=== PATIENT | female | born 1975 | race Caucasian/White ===

== ENCOUNTER 2017-11-08 17:20 | Emergency (ER) | payer SELFPAY ==
--- NOTE | 2017-11-08 18:13 | ER Document Report ---
ED Medical Screen (RME) - General TRAVEL OUTSIDE OF THE [place] 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 This happened several times which affected her walking. Pain extended from the left knee up into the left hip. Whenever she walks, she hears a "pop". Today, patient had an episode where her left hand "froze up" in an open position which lasted for about 2 minutes before it resolved on its own. Patient does not have any history of problems other than she was seen for a knee problem and she was a teenager. (GENO CIFUENTES) - Related Data Allergies/Adverse Reactions: No Known Allergies Allergy (Verified 11/08/17 17:21) Past Medical History - Social History Chew tobacco use (# tins/day): No Frequency of alcohol use: None Drug Abuse: None Renal/ Medical History: Denies: Hx Peritoneal Dialysis - Immunizations Hx Diphtheria, Pertussis, Tetanus Vaccination: Yes <GENO CIFUENTES - Last Filed: 11/08/17 18:12> - Vital signs Vitals: Temp Pulse Resp BP Pulse Ox 97.9 F 95 14 127/48 H 100 11/08/17 17:26 11/08/17 17:26 11/08/17 17:26 11/08/17 17:26 11/08/17 17:26 Course - Laboratory Result Diagrams: 11/08/17 18:25 11/08/17 18:25 <EFRAIN ORTIZ - Last Filed: 11/08/17 20:16> - Vital Signs Vital signs: Temp Pulse Resp BP Pulse Ox 97.9 F 95 14 127/48 H 100 11/08/17 17:26 11/08/17 17:26 11/08/17 17:26 11/08/17 17:26 11/08/17 17:26 - Laboratory Laboratory results interpreted by me: 11/08/17 18:25 WBC 10.9 H Doctor's Discharge <ESAU,GENO - Last Filed: 11/08/17 18:12> <EFRAIN ORTIZ - Last Filed: 11/08/17 20:16> - Discharge Clinical Impression: Hand pain, left Knee pain Qualifiers: Chronicity: acute Laterality: bilateral Qualified Code(s): M25.561 - Pain in right knee; M25.562 - Pain in left knee; M25.562 - Pain in left knee Condition: Stable Disposition: HOME, SELF-CARE Additional Instructions: The blood work shows no concerning abnormality. Your x-ray of the left knee is normal. Your right knee examination suggests a meniscus injury. Elevate, apply ice to the knee (i.e. 15 minutes up up to 3-4 times a day), take the anti-inflammatory as prescribed. Follow up with the primary care referral for additional management (including a possible autoimmune panel based on varied joint pain and family history). Return to the ED for any concerning symptoms - redness/swelling, fever, etc. Prescriptions: Naproxen 250 mg PO BID #20 tablet
[2017-11-08 18:43] LABS: ABSOLUTE BASOPHILS # (AUTO) 0.1 10^3/uL (0.0-0.2); ABSOLUTE EOSINOPHILS # (AUTO) 0.4 10^3/uL (0.0-0.6); ABSOLUTE MONOCYTES (AUTO) 0.9 10^3/uL (0.1-1.4); ABSOLUTE NEUT (AUTO) 6.6 10^3/uL (1.7-8.2); BASOPHILS % (AUTO) 0.6 % (0-2); EOSINOPHILS % (AUTO) 3.3 % (0-6); HEMATOCRIT 41.2 % (36.0-47.0); HEMOGLOBIN 14.3 g/dL (12.0-15.5); HGB HCT DIFFERENCE 1.7; LYMPHOCYTES % (AUTO) 27.4 % (13-45); MEAN CORPUSCULAR HEMOGLOBIN 32.4 pg (27.0-33.4); MEAN CORPUSCULAR HGB CONC 34.7 g/dL (32.0-36.0); MEAN CORPUSCULAR VOLUME 93 fl (80-97); RED BLOOD COUNT 4.41 10^6/uL (3.72-5.28); RED CELL DISTRIBUTION WIDTH 13.5 % (11.5-14.0); SEGMENTED NEUTROPHILS % (AUTO) 60.7 % (42-78); WHITE BLOOD COUNT 10.9 10^3/uL (4.0-10.5)
[2017-11-08 18:59] LABS: ALANINE AMINOTRANSFERASE 27 U/L (9-52); ALBUMIN 4.2 g/dL (3.5-5.0); ALKALINE PHOSPHATASE 83 U/L (38-126); ANION GAP 12 (5-19); ASPARTATE AMINO TRANSFERASE 17 U/L (14-36); BILIRUBIN,DIRECT 0.2 mg/dL (0.0-0.4); BILIRUBIN,TOTAL 0.2 mg/dL (0.2-1.3); BLOOD UREA NITROGEN 7 mg/dL (7-20); CALCIUM 9.6 mg/dL (8.4-10.2); CARBON DIOXIDE 25 mmol/L (22-30); CHLORIDE 106 mmol/L (98-107); CREATININE RESULT 0.78 mg/dL (0.52-1.25); GLUCOSE 83 mg/dL (75-110); MAGNESIUM 2.1 mg/dL (1.6-2.3); POTASSIUM 4.1 mmol/L (3.6-5.0); TOTAL PROTEIN 6.7 g/dL (6.3-8.2)
--- NOTE | 2017-11-08 19:21 | RADIOLOGY REPORT (SQ) ---
EXAM DESCRIPTION: KNEE LEFT 3 VIEWS COMPLETED DATE/TIME: 11/08/2017 6:52 pm REASON FOR STUDY: Left knee locking up. COMPARISON: None. NUMBER OF VIEWS: Three views. TECHNIQUE: AP, lateral, and tunnel radiographic images acquired of the left knee. LIMITATIONS: None. FINDINGS: MINERALIZATION: Normal. BONES: No acute fracture or dislocation. No worrisome bone lesions. JOINT: No effusion. SOFT TISSUES: No soft tissue swelling. No radio-opaque foreign body. OTHER: No other significant finding. IMPRESSION: NEGATIVE STUDY OF THE LEFT KNEE. NO RADIOGRAPHIC EVIDENCE OF ACUTE INJURY. TECHNICAL DOCUMENTATION: JOB ID: [id number] [employer]- All Rights Reserved
[2017-11-08 20:24] VITALS: BP 112/48
--- NOTE | 2017-11-08 20:32 | ER Document Report ---
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 This happened several times which affected her walking. Pain extended from the left knee up into the left hip. Whenever she walks, she hears a "pop". Today, patient had an episode where her left hand "froze up" in an open position which lasted for about 2 minutes before it resolved on its own. Patient does not have any history of problems other than she was seen for a knee problem and she was a teenager. TRAVEL OUTSIDE OF THE [place] IN LAST 30 DAYS: No - Related Data Allergies/Adverse Reactions: No Known Allergies Allergy (Verified 11/08/17 17:21) Past Medical History - Social History Chew tobacco use (# tins/day): No Frequency of alcohol use: None Drug Abuse: None Renal/ Medical History: Denies: Hx Peritoneal Dialysis - Immunizations Hx Diphtheria, Pertussis, Tetanus Vaccination: Yes Physical Exam - Vital signs Vitals: Temp Pulse Resp BP Pulse Ox 97.9 F 95 14 127/48 H 100 11/08/17 17:26 11/08/17 17:26 11/08/17 17:26 11/08/17 17:26 11/08/17 17:26 Course - Vital Signs Vital signs: Temp Pulse Resp BP Pulse Ox 98.2 F 98 18 112/48 L 100 11/08/17 20:22 11/08/17 20:22 11/08/17 20:22 11/08/17 20:22 11/08/17 20:22 - Laboratory Result Diagrams: 11/08/17 18:25 11/08/17 18:25 Laboratory results interpreted by me: 11/08/17 18:25 WBC 10.9 H Doctor's Discharge - Discharge Clinical Impression: Hand pain, left Knee pain Qualifiers: Chronicity: acute Laterality: bilateral Qualified Code(s): M25.561 - Pain in right knee Condition: Stable Disposition: HOME, SELF-CARE Additional Instructions: The blood work shows no concerning abnormality. Your x-ray of the left knee is normal. Your right knee examination suggests a meniscus injury. Elevate, apply ice to the knee (i.e. 15 minutes up up to 3-4 times a day), take the anti-inflammatory as prescribed. Follow up with the primary care referral for additional management (including a possible autoimmune panel based on varied joint pain and family history). Return to the ED for any concerning symptoms - redness/swelling, fever, etc. Prescriptions: Naproxen 250 mg PO BID #20 tablet
== END 2017-11-08 20:28 | disposition home or self-care (01) ==
LOC: ER 17:20
DX: M79.642 Pain in left hand (principal); M25.562 Pain in left knee; M25.552 Pain in left hip; M79.1 Myalgia; X58.XXXA Exposure to other specified factors, initial encounter
CPT/HCPCS: 36415; 80053; 83735; 85025; 99283

== ENCOUNTER 2018-02-13 09:00 | Emergency (ER) | payer OTHER ==
--- NOTE | 2018-02-13 09:39 | ER Document Report ---
ED General - General Chief Complaint: Cold Symptoms Stated Complaint: COUGH Time Seen by Provider: 02/13/18 09:13 Mode of Arrival: Ambulatory Information source: Patient Notes: 42-year-old female presents to ED for cough, congestion, headache, body aches, diarrhea since Friday or Friday and fever since yesterday. Patient is alert and oriented steady on her feet walks with a even steady gait speaks with full sentences pupils equal and react to light. TRAVEL OUTSIDE OF THE [place] IN LAST 30 DAYS: No - HPI Onset: Last week Onset/Duration: Gradual, Persistent, Worse Quality of pain: Achy, Sharp Severity: Severe Pain Level: 5 Associated symptoms: Body/muscle aches, Nonproductive cough, Productive cough, Diarrhea, Fever, Rhinnorhea, Sinus pain/drainage Exacerbated by: Denies Relieved by: Denies Similar symptoms previously: Yes Recently seen / treated by doctor: No - Related Data Allergies/Adverse Reactions: No Known Allergies Allergy (Verified 02/13/18 09:05) Past Medical History - General Information source: Patient - Social History Smoking Status: Current Every Day Smoker Cigarette use (# per day): Yes - ppd Chew tobacco use (# tins/day): No Smoking Education Provided: Yes - 4 min Frequency of alcohol use: None Drug Abuse: None Occupation: [employer] Lives with: Family, Spouse/Significant other Family History: Arthritis, CAD, DM, Hyperlipidemia, Hypertension, Malignancy, Thyroid Disfunction Patient has suicidal ideation: No Patient has homicidal ideation: No - Past Medical History Cardiac Medical History: Reports: None Pulmonary Medical History: Reports: Hx Asthma, Hx Bronchitis EENT Medical History: Reports: None Neurological Medical History: Reports: None Endocrine Medical History: Reports: None Renal/ Medical History: Reports: None Malignancy Medical History: Reports: None GI Medical History: Reports: None Musculoskeltal Medical History: Reports None Skin Medical History: Reports None Psychiatric Medical History: Reports: None Traumatic Medical History: Reports: None Infectious Medical History: Reports: None Surgical Hx: Negative Past Surgical History: Reports: None - Immunizations Immunizations up to date: Yes Hx Diphtheria, Pertussis, Tetanus Vaccination: Yes Review of Systems - Review of Systems Constitutional: Chills, Fever, Recent illness EENT: Nose congestion, Nose discharge, Sinus pressure, Sinus discharge, Throat pain Cardiovascular: No symptoms reported Respiratory: Cough Gastrointestinal: No symptoms reported Genitourinary: No symptoms reported Female Genitourinary: No symptoms reported Musculoskeletal: No symptoms reported Skin: No symptoms reported Hematologic/Lymphatic: No symptoms reported Neurological/Psychological: Headaches -: Yes All other systems reviewed and negative Physical Exam - Vital signs Vitals: Temp Pulse Resp BP Pulse Ox 99.3 F 112 H 18 129/59 H 96 02/13/18 09:09 02/13/18 09:09 02/13/18 09:09 02/13/18 09:09 02/13/18 09:09 Interpretation: Normal - General General appearance: Appears well, Alert - HEENT Head: Normocephalic, Atraumatic Eyes: Normal Pupils: PERRL Ears: Normal Sinus: Normal Nasal: Purulent discharge Mouth/Lips: Normal Mucous membranes: Normal Pharynx: Erythema, Post nasal drainage. No: Exudate, Peritonsillar abscess, Retropharyngeal abscess, Tonsillar hypertrophy, Potential airway comprom. Neck: Normal - Respiratory Respiratory status: No respiratory distress Chest status: Nontender Breath sounds: Nonproductive cough. No: Productive cough, Rales, Rhonchi, Stridor, Wheezing Chest palpation: Normal - Cardiovascular Rhythm: Regular Heart sounds: Normal auscultation Murmur: No - Abdominal Inspection: Normal Distension: No distension Bowel sounds: Normal Tenderness: Nontender Organomegaly: No organomegaly - Back Back: Normal, Nontender - Extremities General upper extremity: Normal inspection, Nontender, Normal color, Normal ROM , Normal temperature General lower extremity: Normal inspection, Nontender, Normal color, Normal ROM , Normal temperature, Normal weight bearing. No: Veronica's sign - Neurological Neuro grossly intact: Yes Cognition: Normal Orientation: AAOx4 Vanessa Coma Scale Eye Opening: Spontaneous Vanessa Coma Scale Verbal: Oriented Vanessa Coma Scale Motor: Obeys Commands Vanessa Coma Scale Total: 15 Speech: Normal Motor strength normal: LUE, RUE, LLE, RLE Sensory: Normal - Psychological Associated symptoms: Normal affect, Normal mood - Skin Skin Temperature: Warm Skin Moisture: Dry Skin Color: Normal Course - Re-evaluation Re-evalutation: 02/13/18 21:37 No significant findings noted on chest x-ray. Patient was treated with Claritin 10 mg, Sudafed 30 mg, Mucinex 600 mg, for her cough cold congestion. Patient was discharged home with instructions for an upper respiratory infection. Patient verbalized understanding of instructions and need to follow- up with primary doctor. - Vital Signs Vital signs: Temp Pulse Resp BP Pulse Ox 100.4 F 94 16 117/59 L 96 02/13/18 10:55 02/13/18 10:55 02/13/18 10:55 02/13/18 10:55 02/13/18 10:55 - Laboratory Result Diagrams: 02/13/18 09:55 02/13/18 09:55 Laboratory results interpreted by me: 02/13/18 02/13/18 09:55 09:55 BUN 4 L Glucose 118 H Urine Urobilinogen 2.0 H Urine Ascorbic Acid 20 H - Diagnostic Test Radiology reviewed: Image reviewed, Reports reviewed Discharge - Discharge Clinical Impression: URI (upper respiratory infection) Qualifiers: URI type: unspecified URI Qualified Code(s): J06.9 - Acute upper respiratory infection, unspecified Condition: Stable Disposition: HOME, SELF-CARE Instructions: Family Physicians / Practices Additional Instructions: UPPER RESPIRATORY ILLNESS: You have a viral infection of the respiratory passages -- a "cold." This common infection causes nasal congestion, drainage, and often sore throat and cough. It is highly contagious. The disease usually lasts about 10 to 14 days. There is no "cure" for the viral infection -- it must run its course. If there is a complication, such as bacterial infection in the nose, sinuses, middle ear, or bronchial tubes, antibiotics may be required. The antibiotics won't affect the virus. Drink plenty of fluids. A humidifier may help. An expectorant medication or decongestant may make you more comfortable. Use acetaminophen or ibuprofen for fever or aches. See the doctor if fever persists over two days, if there is any significant worsening of your symptoms, or if you simply fail to improve as expected. You were treated with Claritin 10 mg, Sudafed 30 mg, Mucinex 600 mg, and ibuprofen 600 mg in the emergency room. These are kamy-exb-aehabyg medications that she can buy as well as Flonase that she can use 1 spray each nostril twice a day. Go according to the box directions. The Sudafed you will need to get across the pharmacy counter and sign for it the rest of them are over-the- counter. If you would like a prescription for the ibuprofen I come into the 600s or you can just get the [id number]-bic-sltqlzh ones and take 3 of them every 6-8 hours. DECONGESTANT MEDICATION: A decongestant medicine has been prescribed. Often this medicine is combined in the same tablet with an antihistamine or expectorant. This type of medicine is helpful in treating a bad cold or sinus condition, as well as in treatment of the nasal congestion of hay fever. It is not of much benefit for lung infections. Decongestant medicines are related to stimulants. They can cause an increase in blood pressure and heart rate. Persons with heart disease and high blood pressure should not take decongestants without discussing this with the physician. If you develop palpitations, chest pain, headache, or tremors, stop the medicine and consult your physician. COUGH-SUPPRESSANT & EXPECTORANT MEDICATION: You are to use a cough medication as needed for relief of symptoms. This medicine is a combination of an expectorant (to make the mucous thinner and more easily "coughed up") and a cough suppressant (to reduce the frequency of coughing). The cough-suppressant medicine is related to narcotics. You may experience mild nausea and sleepiness. Some patients who are very sensitive to narcotics may have stomach pain from this medicine. Taking the medicine with food reduces these side effects. Do not drive or work with machinery until you know how this medicine affects you. The expectorant should have no side effects. Iodine-containing expectorants (such as organidin) should not be taken by persons with active thyroid disease unless approved by your doctor. Call the doctor if you develop shortness of breath, hives, rash, itching, lightheadedness, or severe nausea and vomiting. INHALED BRONCHODILATORS: You have received a treatment of and/or prescription for an inhaled bronchodilator -- a medication which stimulates the airways in the lung to dilate. This improves the flow of air in asthma, bronchitis, and emphysema. These medicines have some similarity to adrenaline, and can cause similar side effects: shakiness, racing heart, and a sense of nervousness. These side effects decrease with time. Contact your doctor if these side effects are severe. Do not over-use the medicine. Too-frequent use of the inhaler may make it ineffective. Call your doctor if the inhaler is not controlling your symptoms at the prescribed doses. USE OF ACETAMINOPHEN (Tylenol): Acetaminophen may be taken for pain relief or fever control. It's much safer than aspirin, offering a wider range of "safe" dosages. It is safe during . Some brand names are Tylenol, Panadol, Datril, Anacin 3, Tempra, and Liquiprin. Acetaminophen can be repeated every four hours. The following are maximum recommended dosages: >89 pounds or adults 650 mg to 900 mg Acetaminophen can be repeated every four hours. Maximum dose not to exceed 4000 mg a day. SMOKING: If you smoke, you should stop smoking. The tar and chemicals in cigarette smoke are harmful. Smoking has been shown to cause: emphysema chronic bronchitis lung cancer mouth and throat cancer stomach and pancreas cancer premature aging defects In addition, smoking increases ear and lung infections in children of smokers. FOLLOW-UP CARE: If you have been referred to a physician for follow-up care, call the physician s office for an appointment as you were instructed or within the next two days. If you experience worsening or a significant change in your symptoms, notify the physician immediately or return to the Emergency Department at any time for re-evaluation. Forms: Elevated Blood Pressure, Smoking Cessation Education, Return to Work
--- NOTE | 2018-02-13 10:11 | RADIOLOGY REPORT (SQ) ---
EXAM DESCRIPTION: CHEST PA/LAT COMPLETED DATE/TIME: 02/13/2018 9:45 am REASON FOR STUDY: cough fever COMPARISON: None. EXAM PARAMETERS: NUMBER OF VIEWS: two views TECHNIQUE: Digital Frontal and Lateral radiographic views of the chest acquired. RADIATION DOSE: NA LIMITATIONS: none FINDINGS: LUNGS AND PLEURA: No opacities, masses or pneumothorax. No pleural effusion. MEDIASTINUM AND HILAR STRUCTURES: No masses or contour abnormalities. HEART AND VASCULAR STRUCTURES: Heart normal size. No evidence for failure. BONES: No acute findings. HARDWARE: None in the chest. OTHER: No other significant finding. IMPRESSION: NO SIGNIFICANT RADIOGRAPHIC FINDING IN THE CHEST. TECHNICAL DOCUMENTATION: JOB ID: [id number] [employer]- All Rights Reserved Reading location - IP/workstation name: [email or web address]
[2018-02-13 10:13] LABS: ABSOLUTE LYMPHOCYTES (AUTO) 1.1 10^3/uL (0.5-4.7); ABSOLUTE MONOCYTES (AUTO) 0.8 10^3/uL (0.1-1.4); ABSOLUTE NEUT (AUTO) 5.5 10^3/uL (1.7-8.2); BASOPHILS % (AUTO) 0.2 % (0-2); EOSINOPHILS % (AUTO) 0.2 % (0-6); HEMATOCRIT 41.8 % (36.0-47.0); HEMOGLOBIN 14.6 g/dL (12.0-15.5); LYMPHOCYTES % (AUTO) 15.2 % (13-45); MEAN CORPUSCULAR HEMOGLOBIN 32.4 pg (27.0-33.4); MEAN CORPUSCULAR HGB CONC 34.9 g/dL (32.0-36.0); MEAN CORPUSCULAR VOLUME 93 fl (80-97); PLATELET COUNT 260 10^3/uL (150-450); RED BLOOD COUNT 4.51 10^6/uL (3.72-5.28); RED CELL DISTRIBUTION WIDTH 13.6 % (11.5-14.0); SEGMENTED NEUTROPHILS % (AUTO) 73.4 % (42-78); TOTAL CELLS COUNTED % (AUTO) 100 %; WHITE BLOOD COUNT 7.5 10^3/uL (4.0-10.5)
[2018-02-13 10:37] LABS: APPEARANCE,URINE CLEAR; COLOR,URINE YELLOW; GLUCOSE, URINE NEGATIVE (NEGATIVE)
[2018-02-13 10:38] LABS: BILIRUBIN,URINE NEGATIVE (NEGATIVE); KETONES,URINE NEGATIVE (NEGATIVE); LEUKOCYTE ESTERASE,URINE NEGATIVE (NEGATIVE); NITRITE,URINE NEGATIVE (NEGATIVE); PROTEIN,URINE NEGATIVE (NEGATIVE)
[2018-02-13 10:40] LABS: ALANINE AMINOTRANSFERASE 38 U/L (9-52); ALBUMIN 4.1 g/dL (3.5-5.0); ALKALINE PHOSPHATASE 72 U/L (38-126); ANION GAP 9 (5-19); ASPARTATE AMINO TRANSFERASE 31 U/L (14-36); BILIRUBIN,DIRECT 0.1 mg/dL (0.0-0.4); BILIRUBIN,TOTAL 0.2 mg/dL (0.2-1.3); BLOOD UREA NITROGEN 4 mg/dL (7-20); CALCIUM 9.1 mg/dL (8.4-10.2); CARBON DIOXIDE 25 mmol/L (22-30); CHLORIDE 105 mmol/L (98-107); GLUCOSE 118 mg/dL (75-110); POTASSIUM 3.7 mmol/L (3.6-5.0); SODIUM 139.4 mmol/L (137-145); TOTAL PROTEIN 6.6 g/dL (6.3-8.2)
[2018-02-13] MEDS ORDERED: GUAIFENESIN 600 MG TABLET.SA PO ONE (10:52)
[2018-02-13] MEDS ORDERED: PSEUDOEPHEDRINE HCL 30 MG TABLET PO ONE (10:52)
[2018-02-13] MEDS ORDERED: LORATADINE 10 MG TABLET PO ONE (10:52)
[2018-02-13] MEDS ORDERED: IBUPROFEN 600 MG TABLET PO ONE (10:53)
[2018-02-13 10:57] VITALS: BP 117/59
== END 2018-02-13 11:05 | disposition home or self-care (01) ==
LOC: ER 09:00
DX: J06.9 Acute upper respiratory infection, unspecified (principal); R05 Cough; R09.81 Nasal congestion; R51 Headache; M79.1 Myalgia; R19.7 Diarrhea, unspecified; R50.9 Fever, unspecified; J34.89 Other specified disorders of nose and nasal sinuses; F17.210 Nicotine dependence, cigarettes, uncomplicated; J45.909 Unspecified asthma, uncomplicated
CPT/HCPCS: 36415; 71046; 80053; 81001; 84703; 85025; 87070; 87880; 99283; 99406

== ENCOUNTER 2018-12-09 03:29 | Emergency (ER) | payer BC, OTHER ==
--- NOTE | 2018-12-09 07:03 | ER Document Report ---
ED ENT - General Chief Complaint: Drainage from Ear Stated Complaint: LEFT EAR PAIN Time Seen by Provider: 12/09/18 06:54 TRAVEL OUTSIDE OF THE [place] IN LAST 30 DAYS: No - HPI Notes: Patient is a 43-year-old female that presents to the emergency department for chief complaint of left ear pain and bleeding. She states for the last 2 weeks she has had sinus congestion, pressure and coughing. She reports some pain and crackling in both ears. Around 2 AM this morning she noticed some blood coming out of her left ear. She states there has been a continuous clear bloody drainage since. She states it is still painful. She states it is difficult to hear out of her left ear. She denies headache, fever, vision changes, nausea, vomiting, shortness of breath and chest pain. she denies injury to her ear. Past Medical History: Negative Past Surgical History: Negative Social History: daily tobacco, occasional alcohol, denies drug use Family History: Reviewed and noncontributory for presenting illness Allergies: Reviewed, see documented allergy list. REVIEW OF SYSTEMS: CONSTITUTIONAL : No fever No chills No diaphoresis No recent illness EENT: Left ear pain and drainage No vision changes congestion No sore throat CARDIOVASCULAR: No chest pain No palpitations RESPIRATORY: No shortness of breath cough No difficulty breathing GASTROINTESTINAL: No abdominal pain No nausea No vomiting No diarrhea GENITOURINARY: No dysuria No hematuria No difficulty urinating MUSCULOSKELETAL: No back pain No leg pain No arm pain SKIN: No rashes No lesions LYMPHATIC: No swollen, enlarged glands. NEUROLOGICAL: No lightheadedness No headache No weakness No paresthesias PSYCHIATRIC: No anxiety No depression PHYSICAL EXAMINATION: Vital signs reviewed, nursing noted reviewed. GENERAL: Well-appearing, well-nourished and in no acute distress. HEAD: Atraumatic, normocephalic. EYES: Eyes appear normal, extraocular movements intact, sclera anicteric, conjunctiva are normal. ENT: No sinus pain to percussion, bilateral nasal mucosal edema, nares patent, oropharynx clear without exudates. Moist mucous membranes. Normal right TM with internal effusion. Left TM perforated, erythematous with purulent and bloody discharge. Normal left external ear canal. NECK: Normal range of motion, supple without lymphadenopathy LUNGS: Breath sounds clear to auscultation bilaterally and equal. No wheezes rales or rhonchi. HEART: Regular rate and rhythm without murmurs ABDOMEN: Soft, nontender, normoactive bowel sounds. No rebound, guarding, or rigidity. No masses appreciated. EXTREMITIES: Nontender, good range of motion, no pitting or edema. NEUROLOGICAL: No focal neurological deficits. Moves all extremities spontaneously Motor and sensory grossly intact on exam. PSYCH: Normal mood, normal affect. SKIN: Warm, Dry, normal turgor, no rashes or lesions noted on exposed skin - Related Data Allergies/Adverse Reactions: No Known Allergies Allergy (Verified 02/13/18 09:05) Past Medical History - Social History Smoking Status: Current Every Day Smoker Frequency of alcohol use: Occasional Drug Abuse: None Family History: Arthritis, CAD, DM, Hyperlipidemia, Hypertension, Malignancy, Thyroid Disfunction Patient has suicidal ideation: No Patient has homicidal ideation: No Pulmonary Medical History: Reports: Hx Asthma, Hx Bronchitis Renal/ Medical History: Denies: Hx Peritoneal Dialysis - Immunizations Immunizations up to date: Yes Hx Diphtheria, Pertussis, Tetanus Vaccination: Yes Physical Exam - Vital signs Vitals: Temp Pulse Resp BP Pulse Ox 98.2 F 82 18 135/67 H 98 12/09/18 03:33 12/09/18 03:33 12/09/18 03:33 12/09/18 03:33 12/09/18 03:33 Course - Re-evaluation Re-evalutation: 12/09/18 07:03 Vitals reviewed. Nursing notes reviewed. Patient is afebrile and nontoxic in appearance. She has a suppurative otitis on the left with spontaneous TM rupture. Patient will be placed on ofloxacin drops and referred to ENT for follow-up. She is otherwise stable in in agreement with plan of care. She will return for new or worsening symptoms. She was instructed on not inserting anything into her ear. - Vital Signs Vital signs: Temp Pulse Resp BP Pulse Ox 98.2 F 82 18 135/67 H 98 12/09/18 03:33 12/09/18 03:33 12/09/18 03:33 12/09/18 03:33 12/09/18 03:33 Discharge - Discharge Clinical Impression: Acute suppur left otitis media w/spontan rupture of tympanic membrane Qualifiers: Recurrence: non-recurrent Qualified Code(s): H66.012 - Acute suppurative otitis media with spontaneous rupture of ear drum, left ear Condition: Stable Disposition: HOME, SELF-CARE Instructions: Otitis Media ([facility]), Use of Ear Drops ([facility]), Perforated Eardrum ([facility]) Additional Instructions: Please return to the emergency department if you have any worsening, or concern of your symptoms. Please return to the emergency department if you develop chest pain, difficulty breathing, severe abdominal pain, or ongoing vomiting. Please follow-up with your primary care physician in 2-3 days and any other recommended physicians. If prescribed, take all medications as directed. If you have any questions or concerns do not hesitate to return the emergency department for evaluation. Do not put any thing into your left ear except for the medications Prescriptions: Ofloxacin [Floxin] 10 ml OT BID 10 Days drops Referrals: RACH LIVINGSTON MD [ACTIVE STAFF] - Follow up in 3-5 days
[2018-12-09 07:17] VITALS: BP 115/62
== END 2018-12-09 07:28 | disposition home or self-care (01) ==
LOC: ER 03:29
DX: H66.012 Acute suppurative otitis media with spontaneous rupture of ear drum, left ear (principal); F17.200 Nicotine dependence, unspecified, uncomplicated
CPT/HCPCS: 99282

== ENCOUNTER 2019-05-17 00:52 | Observation (INO) | payer BC ==
[2019-05-17 01:42] LABS: ABSOLUTE BASOPHILS # (AUTO) 0.1 10^3/uL (0.0-0.2); ABSOLUTE EOSINOPHILS # (AUTO) 0.3 10^3/uL (0.0-0.6); ABSOLUTE LYMPHOCYTES (AUTO) 5.3 10^3/uL (0.5-4.7); ABSOLUTE MONOCYTES (AUTO) 0.7 10^3/uL (0.1-1.4); ABSOLUTE NEUT (AUTO) 6.5 10^3/uL (1.7-8.2); BASOPHILS % (AUTO) 0.5 % (0-2); EOSINOPHILS % (AUTO) 2.5 % (0-6); HEMATOCRIT 38.5 % (36.0-47.0); HEMOGLOBIN 13.3 g/dL (12.0-15.5); LYMPHOCYTES % (AUTO) 40.9 % (13-45); MEAN CORPUSCULAR HEMOGLOBIN 31.6 pg (27.0-33.4); MEAN CORPUSCULAR HGB CONC 34.5 g/dL (32.0-36.0); MEAN CORPUSCULAR VOLUME 92 fl (80-97); MONOCYTES % (AUTO) 5.3 % (3-13); PLATELET COUNT 301 10^3/uL (150-450); RED CELL DISTRIBUTION WIDTH 13.5 % (11.5-14.0); SEGMENTED NEUTROPHILS % (AUTO) 50.8 % (42-78); TOTAL CELLS COUNTED % (AUTO) 100 %; WHITE BLOOD COUNT 12.9 10^3/uL (4.0-10.5)
[2019-05-17 01:47] LABS: APPEARANCE,URINE SLIGHTLY-CLOUDY; BILIRUBIN,URINE NEGATIVE (NEGATIVE); COLOR,URINE YELLOW; GLUCOSE, URINE NEGATIVE (NEGATIVE); KETONES,URINE NEGATIVE (NEGATIVE); LEUKOCYTE ESTERASE,URINE NEGATIVE (NEGATIVE); NITRITE,URINE NEGATIVE (NEGATIVE); PROTEIN,URINE NEGATIVE (NEGATIVE); URINE SPECIFIC GRAVITY 1.014; UROBILINOGEN,URINE NEGATIVE mg/dL (<2.0)
[2019-05-17 02:24] LABS: ALANINE AMINOTRANSFERASE 28 U/L (9-52); ALBUMIN 3.8 g/dL (3.5-5.0); ALKALINE PHOSPHATASE 69 U/L (38-126); ANION GAP 9 (5-19); ASPARTATE AMINO TRANSFERASE 15 U/L (14-36); BILIRUBIN,DIRECT 0.1 mg/dL (0.0-0.4); BILIRUBIN,TOTAL 0.1 mg/dL (0.2-1.3); BLOOD UREA NITROGEN 9 mg/dL (7-20); CALCIUM 9.5 mg/dL (8.4-10.2); CARBON DIOXIDE 24 mmol/L (22-30); CHLORIDE 108 mmol/L (98-107); GLUCOSE 95 mg/dL (75-110); LIPASE 75.1 U/L (23-300); POTASSIUM 3.5 mmol/L (3.6-5.0); SODIUM 140.9 mmol/L (137-145); TOTAL PROTEIN 6.2 g/dL (6.3-8.2)
[2019-05-17] MEDS ORDERED: ONDANSETRON 4 MG TAB.RAPDIS PO ONE (04:09)
[2019-05-17] MEDS ORDERED: OXYCODONE-ACETAMINOPHEN 5-325 MG TABLET PO ONE (04:09)
--- NOTE | 2019-05-17 05:29 | RADIOLOGY REPORT (SQ) ---
Ultrasound right upper quadrant on 05/17/2019 at 4:36 AM CLINICAL INDICATION: Right upper quadrant and epigastric pain COMPARISON: None FINDINGS: Multiple sonographic images are obtained throughout the right upper quadrant, both transverse and sagittal images are obtained. Visualized pancreas is unremarkable. There is increased echogenicity in the liver consistent with fatty infiltration. There is some focal fatty sparing in the liver adjacent to the gallbladder. No focal liver lesion is noted. Common duct measures 4 mm which is within normal limits mitigating against obstruction of the biliary tree. There are echogenic foci with posterior shadowing in the gallbladder neck consistent with gallstones. There is a single area of comet tail artifact along the gallbladder wall suggesting focal gallbladder adenomyomatosis. No gallbladder wall thickening or pericholecystic fluid is noted. Right kidney shows no hydronephrosis. No free fluid is noted in the right upper quadrant. IMPRESSION: 1. Cholelithiasis with also likely focal gallbladder adenomyomatosis. 2. Fatty infiltration of the liver.
[2019-05-17] MEDS ORDERED: NORMAL SALINE 1000 ML 1,000 ML IV ONE (05:53)
--- NOTE | 2019-05-17 05:53 | ER Document Report ---
ED GI/ - General Chief Complaint: Epigastric Pain Stated Complaint: ABDOMINAL PAIN Time Seen by Provider: 05/17/19 03:47 Notes: Patient is a 43-year-old female that comes emergency department for chief complaint of sharp right upper quadrant pain that radiates to her back after eating chicken tonight. She ate this at about 9 PM. She reports nausea but denies vomiting. She denies fever/chills. She denies any abdominal surgeries. She states that she was given cetirizine and prednisone for laryngitis, wonders if the prednisone is causing her symptoms. She denies any daily medications otherwise. She smokes. Denies alcohol or recreational drugs. TRAVEL OUTSIDE OF THE [place] IN LAST 30 DAYS: No - Related Data Allergies/Adverse Reactions: No Known Allergies Allergy (Verified 02/13/18 09:05) Past Medical History - General Information source: Patient - Social History Smoking Status: Current Every Day Smoker Frequency of alcohol use: None Drug Abuse: None Lives with: Family Family History: Arthritis, CAD, DM, Hyperlipidemia, Hypertension, Malignancy, Th yroid Disfunction Patient has suicidal ideation: No Patient has homicidal ideation: No Pulmonary Medical History: Reports: Hx Asthma, Hx Bronchitis Renal/ Medical History: Denies: Hx Peritoneal Dialysis - Immunizations Immunizations up to date: Yes Hx Diphtheria, Pertussis, Tetanus Vaccination: Yes Review of Systems - Review of Systems Constitutional: No symptoms reported EENT: No symptoms reported Cardiovascular: No symptoms reported Respiratory: No symptoms reported Gastrointestinal: See HPI Genitourinary: No symptoms reported Female Genitourinary: No symptoms reported Musculoskeletal: No symptoms reported Skin: No symptoms reported Hematologic/Lymphatic: No symptoms reported Neurological/Psychological: No symptoms reported Physical Exam - Vital signs Vitals: Temp Pulse Resp BP Pulse Ox 97.4 F 72 24 H 123/65 97 05/17/19 01:01 05/17/19 01:01 05/17/19 01:01 05/17/19 01:01 05/17/19 01:01 - Notes Notes: GENERAL: Alert, interacts well. HEAD: Normocephalic, atraumatic. EYES: Pupils equal, round, and reactive to light. Extraocular movements intact. ENT: Oral mucosa moist, tongue midline. Oropharynx unremarkable. Airway patent. NECK: Full range of motion. Supple. Trachea midline. LUNGS: Clear to auscultation bilaterally, no wheezes, rales, or rhonchi. No respiratory distress. HEART: Regular rate and rhythm. No murmur ABDOMEN: Tender with almost guarding in the right upper quadrant and mildly in the epigastric tenderness. Lower abdomen is completely benign. GENITOURINARY: Deferred EXTREMITIES: Moves all 4 extremities spontaneously. No edema, normal radial and dorsalis pedis pulses bilaterally. No cyanosis. BACK: no cervical, thoracic, lumbar midline tenderness. No saddle anesthesia, normal distal neurovascular exam. Moves all extremities in full range of motion. NEUROLOGICAL: Alert and oriented x3. Normal speech. Cranial nerves II through XII grossly intact. PSYCH: Normal affect, normal mood. SKIN: Warm, dry, normal turgor. No rashes or lesions noted. Course - Re-evaluation Re-evalutation: Patient is very well-appearing but she does have a lot of tenderness in the right upper quadrant. She reports pain started after eating dinner. Suggestive of gallbladder pathology. CBC shows mild leukocytosis without bandemia/shift. Chemistry and lipase unremarkable. Urine unremarkable. test is negative. Ultrasound showing cholelithiasis without cholecystitis. Also shows lane nomyomatosis. On reevaluation patient starting to have pain again. Re-medicating. I discussed options with patient. She is requesting to stay and be evaluated by a surgeon because of her returning pain. She does have abdominal pain again on reexamination. Surgery will be consulted. She has been kept n.p.o. except for the medications. Dr. Aviles evaluated the patient and is admitting the patient for surgery. - Vital Signs Vital signs: Temp Pulse Resp BP Pulse Ox 97.8 F 72 18 120/62 96 05/17/19 06:20 05/17/19 01:01 05/17/19 06:04 05/17/19 06:04 05/17/19 07:03 - Laboratory Result Diagrams: 05/17/19 01:10 05/17/19 01:10 Laboratory results interpreted by me: 05/17/19 05/17/19 01:10 01:10 WBC 12.9 H Absolute Lymphocytes 5.3 H Potassium 3.5 L Chloride 108 H Total Bilirubin 0.1 L Total Protein 6.2 L Discharge - Discharge Clinical Impression: Right upper quadrant pain Cholelithiasis Qualifiers: Cholelithiasis location: gallbladder Cholecystitis presence: without raiza cystitis Biliary obstruction: without biliary obstruction Qualified Code(s): K80.20 - Calculus of gallbladder without cholecystitis without obstruction Condition: Stable Disposition: ADMITTED OBSERVATION Admitting Provider: Surgicalist Unit Admitted: OR Forms: Return to Work, Treatment of Relative/Child
[2019-05-17] MEDS ORDERED: NICOTINE 14 MG/24 HR PATCH.TD24 TD ONE (05:55)
[2019-05-17] MEDS ORDERED: MORPHINE SULFATE 10 MG/ML INJ IV ONE (06:00)
[2019-05-17] MEDS ORDERED: ONDANSETRON HCL INJ/PF 4 MG/2 ML SDV IV PRN (08:19)
[2019-05-17] MEDS: PIPERACILLIN SODIUM/TAZOBACTAM 3.375 GM in NORMAL SALINE 100 ML IV SCH ×3 (08:40→21:22)
[2019-05-17] MEDS ORDERED: BUPIVACAINE HCL 0.25% /EPINEPHRINE INJ/PF 30 ML SDV ONE (08:43)
[2019-05-17] MEDS: NORMAL SALINE 1000 ML 1,000 ML IV PRN ×3 (08:50→21:22)
[2019-05-17] MEDS ORDERED: FENTANYL CITRATE INJ/PF 250 MCG/5 ML AMPULE ONE (09:00)
[2019-05-17] MEDS ORDERED: PROPOFOL INJ 200 MG/20 ML VIAL IV ONE (09:01)
[2019-05-17] MEDS ORDERED: MIDAZOLAM 2 MG/2 ML INJ ONE (09:01)
[2019-05-17] MEDS ORDERED: SUGAMMADEX SODIUM 200 MG/2 ML SDV IV ONE (09:01)
[2019-05-17] MEDS ORDERED: MORPHINE SULFATE 10 MG/ML INJ IV PRN (09:44)
[2019-05-17] MEDS ORDERED: FENTANYL CITRATE INJ/PF 100 MCG/2 ML AMPUL IV PRN ×3 (09:44)
[2019-05-17] MEDS ORDERED: PROMETHAZINE HCL INJ 25 MG/1 ML VIAL IV PRN ×2 (09:44)
[2019-05-17] MEDS ORDERED: MEPERIDINE HCL/PF INJ 25 MG/1 ML DISP.SYRIN IV PRN (09:44)
[2019-05-17] MEDS ORDERED: DIPHENHYDRAMINE HCL 50 MG/ML VIAL IV PRN (09:44)
[2019-05-17] MEDS ORDERED: OXYCODONE-ACETAMINOPHEN 5-325 MG TABLET PO PRN ×2 (09:44)
[2019-05-17] MEDS ORDERED: KETOROLAC TROMETHAMINE 60 MG/2 ML SDV ONE (10:48)
--- NOTE | 2019-05-17 10:59 | OPERATIVE REPORT E ---
Operative Report NAME: TAMEKA SALDANA : 1975 AGE: 43Y DATE OF SURGERY: 05/17/2019 ROOM: ED13 PREOPERATIVE DIAGNOSIS: 1. ACUTE CHOLECYSTITIS. 2. CHOLELITHIASIS. POSTOPERATIVE DIAGNOSIS: 1. ACUTE CHOLECYSTITIS. 2. CHOLELITHIASIS. OPERATION: Laparoscopic cholecystectomy. SURGEON: TODD AVILES M.D. ANESTHESIA: General. INDICATION: This is a 44-year-old female complaining of right upper quadrant pains after a fatty meal at lunch time yesterday. Pain started around 6:00 p.m. Noted to have also nausea. Went to ED last night and an ultrasound of the gallbladder showed stones and acute cholecystitis. Patient was markedly tender in right upper quadrant. Patient was then taken to the OR on 05/17/19 for laparoscopic cholecystectomy by Dr. Aviles. She did have acute cholecystitis and cholelithiasis. PROCEDURE: After adequate general anesthesia, the patient was placed in supine position and the abdomen prepped and draped in the usual sterile fashion. Appropriate timeout was then called. Next, an infraumbilical incision was made and the fascia identified and grasped with Ghassan clamps, and divided within the Ghassan clamps. Sutures placed on both fascia around the Ghassan clamps and clamps released. Next, a Kelly trocar was then inserted through the fascia into the abdominal cavity, and CO2 insufflated to a pressure of 15 mmHg. Next, three other trocars were placed under direct vision with a camera. A 12 mm in the subxiphoid and two 5 mm in the right upper quadrant. The gallbladder was then identified, noted to be slightly distended with thickened wall. It was subsequently grasped at that point and pulled over the liver. The infundibulum subsequently grasped. Cystic duct with some edema was then dissected as well as cystic artery. After the angle of *------* was identified, the cystic duct was then clipped, 2 clips proximally and 1 clip distally and divided into distal and proximal clips. The cystic artery was then clipped proximally and then divided close to the gallbladder with use of harmonic nirmala. The gallbladder was then taken off of the liver bed with the use of harmonic nirmala. Prior to completely removing the gallbladder, the liver bed had some oozing which was controlled with cautery. Next, the area was further irrigated and no active bleeding noted. A Surgicel was then placed over the liver bed and the liver completely removed and placed in an EndoBag and pulled out through the umbilical port. Meza trocar then put back and no active bleeding noted along the liver bed. Next, the trocars were removed and CO2 allowed to come out of the trocar sites. The umbilical fascial defect was then closed with a figure of 8 suture using 0-Vicryl and the 2 stay sutures tied together for better closure. The subcutaneous was then irrigated and *------*. The fascia and the subcutaneous incisions sites were then injected with Marcaine and epinephrine. Next, all of the skin incisions were then closed with running subcuticular using 4-0 Vicryl undyed. Steri-Strips placed over the operative site. Needle, instrument, and sponge count were all correct. Estimated blood loss more than 10 mL. Patient brought to the recovery room, extubated in satisfactory condition. DICTATING PHYSICIAN: TODD AVILES M.D. [id number] PHY#: [id number] ID: [id number] JOB#: [id number] ACCT: [id number] cc:TODD AVILES M.D. >
[2019-05-17] MEDS: HYDROMORPHONE HCL INJ/PF 2 MG/ML AMPULE IV PRN ×2 (12:32→21:22)
[2019-05-17] MEDS ORDERED: ROCURONIUM BROMIDE INJ 50 MG/5 ML VIAL IV ONE (14:13)
[2019-05-17] MEDS ORDERED: LIDOCAINE 2% INJ-PF (20 MG/ML) 2 ML AMPUL ONE (14:13)
[2019-05-17] MEDS ORDERED: NEOSTIGMINE METHYLSULFATE 10 MG/10 ML VIAL ONE (14:13)
[2019-05-17] MEDS ORDERED: GLYCOPYRROLATE 1 MG/5 ML VIAL ONE (14:13)
[2019-05-17] MEDS ORDERED: DEXAMETHASONE SOD PHOSPHATE INJ 4 MG/1 ML VIAL ONE (14:13)
[2019-05-17] MEDS ORDERED: ONDANSETRON HCL INJ/PF 4 MG/2 ML SDV ONE (14:13)
[2019-05-18] MEDS: PIPERACILLIN SODIUM/TAZOBACTAM 3.375 GM in NORMAL SALINE 100 ML IV SCH ×3 (03:19→14:48)
[2019-05-18] MEDS: NORMAL SALINE 1000 ML 1,000 ML IV PRN ×2 (06:08→08:58)
[2019-05-18] MEDS: HYDROMORPHONE HCL INJ/PF 2 MG/ML AMPULE IV PRN (06:39)
[2019-05-18 13:24] VITALS: BP 106/45
--- NOTE | 2019-05-18 21:49 | DISCHARGE SUMMARY E ---
Discharge Summary NAME: TAMEKA SALDANA : 1975 AGE: 43Y ADMITTED: 05/17/2019 DISCHARGED: 05/18/2019 FINAL DIAGNOSIS: Acute cholecystitis and cholelithiasis. PROCEDURE DONE: On 05/17/19, laparoscopic cholecystectomy, surgeon Dr. Aviles. HOSPITAL COURSE: This 43-year-old female complaining of right upper quadrant pain and had an ultrasound of the gallbladder which showed gallstones. She was markedly tender in the right upper quadrant. She then underwent laparoscopic cholecystectomy on 05/17/19, which she tolerated well. An acute cholecystitis with cholelithiasis was noted during surgery. Postoperatively she did very well and tolerated a regular diet on 05/18/19. She was discharged improved on 05/18/2019. DISCHARGE INSTRUCTIONS: The patient was given a prescription for Toradol 10 mg p.o. q.6 hours p.r.n. for pain and advised to avoid any heavy lifting more than 10 to 15 pounds until seen in the surgical clinic in 2 weeks. DICTATING PHYSICIAN: TODD AVILES M.D. [id number] PHY#: [id number] ID: [id number] JOB#: [id number] ACCT: [id number] cc:TODD AVILES M.D. >
== END 2019-05-18 18:15 | disposition home or self-care (01) ==
LOC: ER 00:52 → EH 08:15 → 4N 12:03
PROVIDERS: ADMIT Surgery; ATTEND Surgery
PROC: 0FT44ZZ Resection of Gallbladder, Percutaneous Endoscopic Approach (ICD-10-PCS; principal; 2019-05-17 09:00)
DX: K80.00 Calculus of gallbladder with acute cholecystitis without obstruction (principal); F17.200 Nicotine dependence, unspecified, uncomplicated; D72.829 Elevated white blood cell count, unspecified
CPT/HCPCS: 47562; 99284; 96361; 96374; 36415; 87040; 83690; 85025; 80053; 81001; 88304 ×2; 76705; 00790; J2250; J3490 ×5; J1100; J1885; S0119; J3010; J2270; J2710; J1170 ×2; J2405; J7050 ×2; J7030 ×2; J2704; J2543 ×2; 790; G0378

== ENCOUNTER 2019-12-16 16:35 | Emergency (ER) | payer BC, OTHER ==
[2019-12-16] MEDS ORDERED: KETOROLAC TROMETHAMINE 60 MG/2 ML SDV IM ONE (17:33)
[2019-12-16] MEDS ORDERED: ONDANSETRON 4 MG TAB.RAPDIS PO ONE (17:33)
--- NOTE | 2019-12-16 17:33 | ER Document Report ---
HPI - HPI Patient complains to provider of: Flulike symptoms Time Seen by Provider: 12/16/19 17:27 Pain Level: 2 Notes: 44-year-old female to the emergency department with complaints of flulike symptoms that began 3 to 4 days ago. She states that she has cough, chest congestion, nasal congestion, scratchy throat, nausea, diarrhea, body aches. She states that she thinks she has been running a fever but she is not been measuring it at home. She has been taking Jayla-Grannis sinus and cold. The last time she took this was 1 day ago. She states that her cough/nasal congestion are her worst symptoms. She is unsure if she has a sick contact but she does state a gentleman who has 3 younger children. She did not get a flu shot this season. - REPRODUCTIVE Reproductive: DENIES: : Past Medical History - General Information source: Patient - Social History Smoking Status: Current Every Day Smoker Chew tobacco use (# tins/day): No Frequency of alcohol use: None Drug Abuse: None Lives with: Spouse/Significant other Family History: Arthritis, CAD, DM, Hyperlipidemia, Hypertension, Malignancy, Thyroid Disfunction Patient has suicidal ideation: No Patient has homicidal ideation: No Pulmonary Medical History: Reports: Hx Asthma, Hx Bronchitis Renal/ Medical History: Denies: Hx Peritoneal Dialysis - Immunizations Immunizations up to date: Yes Hx Diphtheria, Pertussis, Tetanus Vaccination: Yes Vertical Provider Document - CONSTITUTIONAL Agree With Documented VS: Yes Exam Limitations: No Limitations General Appearance: WD/WN, No Apparent Distress - INFECTION CONTROL TRAVEL OUTSIDE OF THE [place] IN LAST 30 DAYS: No - HEENT HEENT: Atraumatic, Normocephalic, PERRLA Notes: Mild postnasal drip with posterior oropharyngeal cobblestoning. There is no tonsillar hypertrophy or exudates. Patient has grossly patent airway. No Micah's angina. No drooling. - NECK Neck: Normal Inspection, Supple. negative: Lymphadenopathy-Left, Lymp hadenopathy-Right - RESPIRATORY Respiratory: No Respiratory Distress. negative: Rales, Rhonchi, Wheezing Notes: Mildly decreased breath sounds throughout. No wheezes rhonchi or rales. Patient can speak in full sentences. No accessory muscle use. - CARDIOVASCULAR Cardiovascular: Regular Rate, Regular Rhythm, No Murmur - GI/ABDOMEN Gastrointestinal: Abdomen Soft, Abdomen Non-Tender, No Organomegaly, Normal Bowel Sounds - BACK Back: Normal Inspection - MUSCULOSKELETAL/EXTREMETIES Musculoskeletal/Extremeties: WILLIE BEDOLLA - NEURO Level of Consciousness: Awake Motor/Sensory: No Motor Deficit, No Sensory Deficit - DERM Integumentary: Warm, Dry, No Rash Course - Re-evaluation Re-evalutation: 12/16/19 Impression: Flulike syndrome. Patient is out of the range for Tamiflu so did not do any formal testing. Chest x-ray is negative for pneumonia. Will discharge home with symptomatic medicines for relief. Patient agrees with plan. - Vital Signs Vital signs: Temp Pulse Resp BP Pulse Ox 97.9 F 89 16 128/48 H 98 12/16/19 16:43 12/16/19 16:43 12/16/19 16:43 12/16/19 16:43 12/16/19 16:43 Discharge - Discharge Clinical Impression: Flu-like symptoms, Cough, Nausea, Sore throat Condition: Stable Disposition: HOME, SELF-CARE Instructions: Influenza (ON LICENSE OF [facility]) Additional Instructions: Push fluids, rest in bed. Take medicines as prescribed. Return for worsening symptoms. Follow-up with primary care in 1 week. Prescriptions: Ondansetron [Zofran Odt 4 mg Tablet] 1 - 2 tab PO Q4HP PRN #10 tab.rapdis PRN Reason: Ibuprofen [Motrin 800 mg Tablet] 800 mg PO Q8H PRN #30 tab PRN Reason: Albuterol Sulfate [Proair HFA Inhalation Aerosol 8.5 gm MDI] 2 puff IH Q4H PRN #1 mdi PRN Reason: Promethazine/Dextromethorphan [Promethazine-Dm Solution] 5 ml PO Q6H #120 ml Forms: Return to Work Referrals: [facility] [Provider Group] - Follow up in 1 week
--- NOTE | 2019-12-16 18:13 | RADIOLOGY REPORT (SQ) ---
EXAM DESCRIPTION: CHEST 2 VIEWS COMPLETED DATE/TIME: 12/16/2019 5:41 pm REASON FOR STUDY: cough, chest congestion, pain with coughing COMPARISON: 02/13/2018 TECHNIQUE: Frontal and lateral radiographic views of the chest acquired. NUMBER OF VIEWS: Two view. LIMITATIONS: None. FINDINGS: LUNGS AND PLEURA: No opacities, masses or pneumothorax. No pleural effusion. MEDIASTINUM AND HILAR STRUCTURES: No masses or contour abnormalities. HEART AND VASCULAR STRUCTURES: Heart normal size. No evidence for failure. BONES: No acute findings. HARDWARE: None in the chest. OTHER: No other significant finding. IMPRESSION: NO SIGNIFICANT RADIOGRAPHIC FINDING IN THE CHEST. TECHNICAL DOCUMENTATION: JOB ID: [id number] Monitor- All Rights Reserved Reading location - IP/workstation name: [email or web address]
[2019-12-16 18:24] VITALS: BP 119/49
== END 2019-12-16 18:20 | disposition home or self-care (01) ==
LOC: ER 16:35
DX: R05 Cough (principal); R09.81 Nasal congestion; R11.0 Nausea; R19.7 Diarrhea, unspecified; M79.10 Myalgia, unspecified site; F17.200 Nicotine dependence, unspecified, uncomplicated
CPT/HCPCS: 99283; 96372; 71046; J1885; S0119